=== PATIENT | male | born 1995 | race Caucasian/White ===

== ENCOUNTER 2017-07-22 10:29 | Emergency (ER) | payer OTHER ==
--- NOTE | 2017-07-22 11:56 | XR ---
EXAMINATION TYPE: XR chest 2V DATE OF EXAM ORDERED: 07/22/2017 HISTORY: Pain. REFERENCE: Previous study dated 07/14/2016. FINDINGS: The lungs are clear. Pleural spaces are clear. Heart size is normal. IMPRESSION: NORMAL CHEST.
--- NOTE | 2017-07-22 12:20 | ED ---
URI HPI - General Chief Complaint: Upper Respiratory Infection Stated Complaint: SOB Time Seen by Provider: 07/22/17 11:31 Source: patient, RN notes reviewed, old records reviewed Mode of arrival: ambulatory Limitations: no limitations - History of Present Illness Initial Comments: 21 year old male with one week of cough and sore throat related to cough. Patient reports that he thinks he has croup as his throat will occasionally feel tight. Patient has had no fever, no production from her cough. Patient is not a smoker. Reports history of asthma. Patient denies abodminal pain, chest pain, headche, nausea, vomiting, changes in bowel and bladder habits. - Related Data Home Medications Medication Instructions Recorded Confirmed predniSONE 20 mg PO ONCE PRN 07/22/17 07/22/17 Previous Rx's Medication Instructions Recorded Albuterol Inhaler [Ventolin Hfa 1 - 2 puff INHALATION Q6HR PRN #1 07/22/17 Inhaler] inhaler Azithromycin [Zithromax Z-pack] 250 mg PO DIRECTED #6 tab 07/22/17 predniSONE 50 mg PO DAILY #5 tablet 07/22/17 Allergies Allergy/AdvReac Type Severity Reaction Status Date / Time blueberry [Blueberry] Allergy Rash/Hives Verified 07/22/17 12:08 green beans AdvReac Vomiting Uncoded 07/22/17 10:49 Review of Systems ROS Statement: Those systems with pertinent positive or pertinent negative responses have been documented in the HPI. ROS Other: All systems not noted in ROS Statement are negative. Past Medical History Past Medical History: Asthma History of Any Multi-Drug Resistant Organisms: None Reported Past Surgical History: No Surgical Hx Reported Past Psychological History: No Psychological Hx Reported Smoking Status: Former smoker Past Alcohol Use History: None Reported Past Drug Use History: None Reported General Exam - General Exam Comments Initial Comments: Well appearing 21 year old male, no distress. Limitations: no limitations General appearance: alert, in no apparent distress Head exam: Present: atraumatic, normocephalic, normal inspection Eye exam: Present: normal appearance, PERRL, EOMI. Absent: scleral icterus, conjunctival injection, periorbital swelling Neck exam: Present: normal inspection. Absent: tenderness, meningismus, lymphadenopathy Respiratory exam: Present: normal lung sounds bilaterally. Absent: respiratory distress, wheezes, rales, rhonchi, stridor Cardiovascular Exam: Present: regular rate, normal rhythm, normal heart sounds. Absent: systolic murmur, diastolic murmur, rubs, gallop, clicks GI/Abdominal exam: Present: soft, normal bowel sounds. Absent: distended, tenderness, guarding, rebound, rigid Back exam: Present: normal inspection Neurological exam: Present: alert, oriented X3, CN II-XII intact Psychiatric exam: Present: normal affect, normal mood Skin exam: Present: warm, dry, intact, normal color. Absent: rash Course Vital Signs 07/22/17 07/22/17 10:46 12:39 Temperature 98.4 F 97.4 F L Pulse Rate 67 68 Respiratory 16 18 Rate Blood Pressure 129/60 132/66 O2 Sat by Pulse 99 97 Oximetry Medical Decision Making - Medical Decision Making 21 year old male with one week of cough and sore throat. Patient oropharynx appears normal, no exudate. Patient has no fever at this time. Lungs are clear to ausculation, no wheezing noted. Patient CXR is within normal limitis. Patient does have a dry cough occasionally in ED. Patient will be diagnosed with bronchitis and discharged with azithromycin, prednisione, and albuterol inhaler. Discussed follow up with PCP and return parameters discussed. - Radiology Data Radiology results: report reviewed CXR negative for any acute process. Disposition Clinical Impression: Bronchitis Disposition: HOME SELF-CARE Condition: Good Instructions: Acute Bronchitis (ED) Additional Instructions: Patient is advised to follow-up with primary care provider. Take medications as prescribed. Return to emergency department if any alarming signs or symptoms occur. Prescriptions: Albuterol Inhaler [Ventolin Hfa Inhaler] 1 - 2 puff INHALATION Q6HR PRN #1 inhaler PRN Reason: Shortness Of Breath Azithromycin [Zithromax Z-pack] 250 mg PO DIRECTED #6 tab predniSONE 50 mg PO DAILY #5 tablet Referrals: Vishal Cedeño MD [Primary Care Provider] - 1-2 days Time of Disposition: 12:17
[2017-07-22 12:40] VITALS: BP 132/66; PULSE 68; RESP 18; TEMP 97.4
== END 2017-07-22 12:40 | disposition home or self-care (01) ==
LOC: EC 10:29
DX: J45.909 Unspecified asthma, uncomplicated (principal); Z87.891 Personal history of nicotine dependence; Z91.018 Allergy to other foods
CPT/HCPCS: 71020; 99284

== ENCOUNTER 2019-02-16 13:26 | Emergency (ER) | payer OTHER ==
[2019-02-16 13:54] VITALS: BP 125/72; PULSE 97; RESP 16; TEMP 98.2
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
--- NOTE | 2019-02-16 14:51 | XR ---
EXAMINATION TYPE: XR ankle complete RT DATE OF EXAM: 02/16/2019 CLINICAL HISTORY: Fall, pain TECHNIQUE: Frontal, lateral and oblique images of the right ankle are obtained. COMPARISON: None. FINDINGS: Obliquely oriented minimally laterally displaced fracture is seen involving the distal fibu la. Fracture line extends into the articulation with the tibia. No dislocation. Diffuse soft tissue s welling is seen of the lateral ankle. No medial malleolus fracture. No additional sites of fracture a re evident. IMPRESSION: Obliquely oriented and minimally displaced distal fibular fracture with fracture line ext ending into the tibiofibular articulation.
== END 2019-02-16 15:31 | disposition home or self-care (01) ==
LOC: EC 13:26
DX: S82.831A Other fracture of upper and lower end of right fibula, initial encounter for closed fracture (principal); J45.909 Unspecified asthma, uncomplicated; Z87.891 Personal history of nicotine dependence; Z91.018 Allergy to other foods; V87.8XXA Person injured in other specified noncollision transport accidents involving motor vehicle (traffic), initial encounter; Y92.410 Unspecified street and highway as the place of occurrence of the external cause
CPT/HCPCS: 29515; 99283

== ENCOUNTER 2020-09-23 06:30 | Emergency (ER) | payer OTHER ==
[2020-09-23 06:37] VITALS: RESP 18
[2020-09-23] MEDS ORDERED: ALBUTEROL NEBULIZED 2.5 MG/3 ML INHALATION STA ×2 (06:43→07:13)
[2020-09-23] MEDS ORDERED: methylPREDNISolone SOD SUCCI 125 MG/2 ML VIAL IM ONE (06:43)
--- NOTE | 2020-09-23 06:48 | ED ---
URI HPI - General Chief Complaint: Upper Respiratory Infection Stated Complaint: OSCAR Time Seen by Provider: 09/23/20 06:39 Source: patient Mode of arrival: ambulatory Limitations: no limitations - History of Present Illness Initial Comments: 24yo with history of asthma uses rescue inhaler and oral steroids on PRN basis presenting for cc of dyspnea. pt states he has had increased wheezing for the past 3 days, increase use of his inhaler. pt states this morning he had to use it and has increased coughing. patietn denies fevers, denies chest pain, leg s welling. pt denies additional complaints. pt state she took prednisone yesterday. - Related Data Home Medications Medication Instructions Recorded Confirmed predniSONE [Deltasone] 20 mg PO ONCE PRN 07/22/17 07/22/17 Previous Rx's Medication Instructions Recorded Albuterol Inhaler (Mhu) [Ventolin 1 - 2 puff INHALATION Q6HR PRN #1 07/22/17 Hfa Inhaler (Mhu)] inhaler Azithromycin [Zithromax Z-pack (6 250 mg PO DIRECTED #6 tab 07/22/17 tabs)] predniSONE 50 mg PO DAILY #5 tablet 07/22/17 predniSONE 50 mg PO DAILY 4 Days #4 tablet 09/23/20 Allergies Allergy/AdvReac Type Severity Reaction Status Date / Time blueberry [Blueberry] Allergy Rash/Hives Verified 09/23/20 06:37 green beans AdvReac Vomiting Uncoded 09/23/20 06:37 Review of Systems ROS Statement: Those systems with pertinent positive or pertinent negative responses have been documented in the HPI. ROS Other: All systems not noted in ROS Statement are negative. Past Medical History Past Medical History: Asthma History of Any Multi-Drug Resistant Organisms: None Reported Past Surgical History: No Surgical Hx Reported Past Psychological History: No Psychological Hx Reported Smoking Status: Vaper Past Alcohol Use History: None Reported Past Drug Use History: Marijuana General Exam - General Exam Comments Initial Comments: General: The patient is awake and alert, in no distress, and does not appear acutely ill. Eye: Pupils are equal, round and reactive to light, extra-ocular movements are intact. No nystagmus. There is normal conjunctiva bilaterally. No signs of icterus. Ears, nose, mouth and throat: There are moist mucous membranes and no oral lesions. Neck: The neck is supple, there is no tenderness or JVD. Cardiovascular: There is a regular rate and rhythm. No murmur, rub or gallop is appreciated. Respiratory: Respirations are non-labored, breath sounds are equal. Slightly diminished lung sounds on expiration. No wheezes, stridor, rales, or rhonchi. Musculoskeletal: Normal ROM, no tenderness. Strength 5/5. Sensation intact. Pulses equal bilaterally 2+. Neurological: A&O x 3. CN II-XII intact, There are no obvious motor or sensory deficits. Coordination appears grossly intact. Speech is normal. Skin: Skin is warm and dry and no rashes or lesions are noted. Psychiatric: Cooperative, appropriate mood & affect, normal judgment. Limitations: no limitations Course Vital Signs 09/23/20 09/23/20 09/23/20 06:32 06:48 07:03 Temperature 97.6 F Pulse Rate 73 84 Respiratory 18 18 Rate Blood Pressure 134/85 O2 Sat by Pulse 97 Oximetry 09/23/20 09/23/20 09/23/20 07:10 07:41 07:48 Temperature Pulse Rate 76 76 74 Respiratory Rate Blood Pressure O2 Sat by Pulse Oximetry 09/23/20 08:11 Temperature 97.8 F Pulse Rate 71 Respiratory 18 Rate Blood Pressure 128/78 O2 Sat by Pulse 97 Oximetry Medical Decision Making - Medical Decision Making after 2 treatment improvement of aeration. Chest x-ray clear. VS stable. pt will be discharged on steroids. has ventolin inhaler. patient discharged appearing well. - Lab Data Lab Results 09/23/20 Range/Units 06:48 Coronavirus (PCR) Not Detected (Not Detectd) Disposition Clinical Impression: Dyspnea, Cough Disposition: HOME SELF-CARE Condition: Good Instructions (If sedation given, give patient instructions): Upper Respiratory Infection (ED), Dyspnea (ED) Additional Instructions: Please use medication as discussed. Please follow-up with family doctor in the next 2 days.. Please return to emergency room if the symptoms increase or worsen or for any other concerns. Prescriptions: predniSONE 50 mg PO DAILY 4 Days #4 tablet Is patient prescribed a controlled substance at d/c from ED?: No Referrals: Vishal Cedeño MD [Primary Care Provider] - 1-2 days Time of Disposition: 07:53
--- NOTE | 2020-09-23 07:07 | XR ---
EXAM: XR Chest, 2 Views CLINICAL HISTORY: ITS.REASON XR Reason: dyspnea, hx asthma TECHNIQUE: Frontal and lateral views of the chest. COMPARISON: 07/22/17. FINDINGS: Lungs: Mild perihilar opacities, similar to prior. No consolidation. Pleural space: No significant pleural effusion or pneumothorax. Heart: Unremarkable. Mediastinum: Unremarkable. Bones/joints: No acute fracture. IMPRESSION: No consolidation.
[2020-09-23 08:12] VITALS: BP 128/78; PULSE 71; TEMP 97.8
== END 2020-09-23 08:12 | disposition home or self-care (01) ==
LOC: EC 06:30
DX: R06.00 Dyspnea, unspecified (principal); R05 Cough; F17.290 Nicotine dependence, other tobacco product, uncomplicated; J45.909 Unspecified asthma, uncomplicated; Z20.828 Contact with and (suspected) exposure to other viral communicable diseases; Z79.52 Long term (current) use of systemic steroids; Z91.018 Allergy to other foods
CPT/HCPCS: 94640 ×2; 87635; 71046; 99285; 96372; J2930

== ENCOUNTER 2021-07-09 12:37 | Emergency (ER) | payer OTHER ==
--- NOTE | 2021-07-09 13:48 | ED ---
General Adult HPI - General Stated complaint: Sore throat, Cough Time Seen by Provider: 07/09/21 13:00 Source: patient, RN notes reviewed Mode of arrival: ambulatory Limitations: no limitations - History of Present Illness Initial comments: This a 25-year-old male presents emergency Department chief complaint sore throat, cough congestion. Patient states that he has mild shortness of breath symptoms started last few days. Patient denies any known sick contacts. No history of COVID-19. Denies any GI symptoms including nausea, vomiting diarrhea constipation. - Related Data Home Medications Medication Instructions Recorded Confirmed predniSONE [Deltasone] 20 mg PO ONCE PRN 07/22/17 07/22/17 Previous Rx's Medication Instructions Recorded Albuterol Inhaler (Mhu) [Ventolin 1 - 2 puff INHALATION Q6HR PRN #1 07/22/17 Hfa Inhaler (Mhu)] inhaler Azithromycin [Zithromax Z-pack (6 250 mg PO DIRECTED #6 tab 07/22/17 tabs)] predniSONE 50 mg PO DAILY #5 tablet 07/22/17 predniSONE 50 mg PO DAILY 4 Days #4 tablet 09/23/20 Allergies Allergy/AdvReac Type Severity Reaction Status Date / Time blueberry [Blueberry] Allergy Rash/Hives Verified 07/09/21 13:47 green beans AdvReac Vomiting Uncoded 07/09/21 13:47 Review of Systems ROS Statement: Those systems with pertinent positive or pertinent negative responses have been documented in the HPI. ROS Other: All systems not noted in ROS Statement are negative. Past Medical History Past Medical History: Asthma History of Any Multi-Drug Resistant Organisms: None Reported Past Surgical History: No Surgical Hx Reported Past Psychological History: No Psychological Hx Reported Smoking Status: Vaper Past Alcohol Use History: None Reported Past Drug Use History: Marijuana Course Vital Signs 07/09/21 13:47 Temperature 97.4 F L Pulse Rate 76 Respiratory 18 Rate Blood Pressure 126/78 O2 Sat by Pulse 99 Oximetry Medical Decision Making - Medical Decision Making Patient's COVID-19 swab is negative. Patient be discharged and stable condition. - Lab Data Lab Results 07/09/21 Range/Units 13:59 Coronavirus (PCR) Not Detected (Not Detectd) Disposition Clinical Impression: Upper respiratory infection Disposition: HOME SELF-CARE Condition: Stable Instructions (If sedation given, give patient instructions): Upper Respiratory Infection (ED) Additional Instructions: Please return to the Emergency Department if symptoms worsen or any other concerns. Is patient prescribed a controlled substance at d/c from ED?: No Referrals: Vishal Cedeño MD [Primary Care Provider] - 1-2 days Time of Disposition: 14:41
[2021-07-09 13:49] VITALS: BP 126/78; PULSE 76; RESP 18; TEMP 97.4
== END 2021-07-09 15:07 | disposition home or self-care (01) ==
LOC: EC 12:37
DX: J02.9 Acute pharyngitis, unspecified (principal); R06.02 Shortness of breath; J45.909 Unspecified asthma, uncomplicated; F12.90 Cannabis use, unspecified, uncomplicated; Z20.822 Contact with and (suspected) exposure to COVID-19; Z79.52 Long term (current) use of systemic steroids; Z79.51 Long term (current) use of inhaled steroids
CPT/HCPCS: 87635; 99284

== ENCOUNTER 2021-09-19 11:24 | Emergency (ER) | payer OTHER ==
[2021-09-19 11:58] VITALS: TEMP 98.1
--- NOTE | 2021-09-19 12:59 | ED ---
General Adult HPI - General Chief complaint: Headache Stated complaint: headache Time Seen by Provider: 09/19/21 12:00 Source: patient, RN notes reviewed Mode of arrival: ambulatory Limitations: no limitations - History of Present Illness Initial comments: Patient is a pleasant 25-year-old male presenting to the emergency Department not feeling well for the past 5 days. Patient has had headache and nasal congestion. Headaches were not sudden onset and severe. Lost of smell. No loss of taste. No vomiting. No dyspnea. No history of similar symptoms previously. Patient does have fatigue. Fatigue is somewhat chronic. Patient does have history of asthma. - Related Data Home Medications Medication Instructions Recorded Confirmed predniSONE [Deltasone] 20 mg PO ONCE PRN 07/22/17 07/22/17 Previous Rx's Medication Instructions Recorded Albuterol Inhaler (Mhu) [Ventolin 1 - 2 puff INHALATION Q6HR PRN #1 07/22/17 Hfa Inhaler (Mhu)] inhaler Azithromycin [Zithromax Z-pack (6 250 mg PO DIRECTED #6 tab 07/22/17 tabs)] predniSONE 50 mg PO DAILY #5 tablet 07/22/17 predniSONE 50 mg PO DAILY 4 Days #4 tablet 09/23/20 Azithromycin [Zithromax Z-pack (6 0 mg PO DIRECTED #1 packet 07/09/21 tabs)] predniSONE 50 mg PO DAILY #5 tab 07/09/21 Allergies Allergy/AdvReac Type Severity Reaction Status Date / Time blueberry [Blueberry] Allergy Rash/Hives Verified 09/19/21 11:55 green beans AdvReac Vomiting Uncoded 09/19/21 11:55 Review of Systems ROS Statement: Those systems with pertinent positive or pertinent negative responses have been documented in the HPI. ROS Other: All systems not noted in ROS Statement are negative. Constitutional: Reports: chills Eyes: Denies: eye pain ENT: Reports: congestion. Denies: ear pain Respiratory: Denies: cough, dyspnea Cardiovascular: Denies: chest pain Endocrine: Reports: fatigue Gastrointestinal: Denies: abdominal pain Genitourinary: Denies: dysuria Musculoskeletal: Denies: back pain Skin: Denies: rash Neurological: Denies: weakness Past Medical History Past Medical History: Asthma History of Any Multi-Drug Resistant Organisms: None Reported Past Surgical History: No Surgical Hx Reported Past Psychological History: No Psychological Hx Reported Smoking Status: Vaper Past Alcohol Use History: None Reported Past Drug Use History: Marijuana General Exam Limitations: no limitations General appearance: alert, in no apparent distress Head exam: Present: normocephalic Eye exam: Present: normal appearance Neck exam: Present: normal inspection Respiratory exam: Present: normal lung sounds bilaterally Cardiovascular Exam: Present: regular rate, normal rhythm Back exam: Present: normal inspection Neurological exam: Present: alert, CN II-XII intact. Absent: motor sensory deficit Psychiatric exam: Present: normal affect, normal mood Skin exam: Present: normal color Course Vital Signs 09/19/21 11:55 Temperature 98.1 F Pulse Rate 84 Respiratory 18 Rate Blood Pressure 128/88 O2 Sat by Pulse 98 Oximetry Medical Decision Making - Medical Decision Making Patient is a candidate for monoclonal antibody secondary to history of asthma. Patient will receive these prior to discharge. - Lab Data Lab Results 09/19/21 Range/Units 11:58 Coronavirus (PCR) Detected A (Not Detectd) Disposition Clinical Impression: COVID-19 Disposition: HOME SELF-CARE Condition: Stable Instructions (If sedation given, give patient instructions): Coronavirus Disease 2019 (COVID-19) Additional Instructions: Please follow-up with primary care physician in the next couple days for recheck. Continue to quarantine through [place]. [id number] Tylenol or Motrin as needed. [id number] vitamin C, vitamin D, and seems to help. Melatonin at bedtime may help. Return for difficulty breathing. Not tolerating fluids, worsening symptoms or other concerns. Is patient prescribed a controlled substance at d/c from ED?: No Referrals: Vishal Cedeño MD [Primary Care Provider] - 1-2 days Time of Disposition: 12:58
[2021-09-19] MEDS ORDERED: SODIUM CHLORIDE 0.9% 50 ML IVPB ONE (14:00)
[2021-09-19] MEDS ORDERED: BAMLANIVIMAB (EUA) 700 MG, ETESEVIMAB (EUA) 1,400 MG in SODIUM CHLORIDE 0.9% 50 ML IVPB ONE (14:00)
[2021-09-19 16:24] VITALS: BP 128/70; PULSE 72; RESP 15
== END 2021-09-19 15:20 | disposition home or self-care (01) ==
LOC: EC 11:24
DX: U07.1 COVID-19 (principal); J45.909 Unspecified asthma, uncomplicated; F17.290 Nicotine dependence, other tobacco product, uncomplicated; F12.90 Cannabis use, unspecified, uncomplicated; Z79.52 Long term (current) use of systemic steroids; Z79.51 Long term (current) use of inhaled steroids
CPT/HCPCS: 87635; 99284; J3490

== ENCOUNTER 2022-02-02 12:36 | Emergency (ER) | payer OTHER ==
[2022-02-02 12:55] VITALS: BP 126/83; PULSE 69; RESP 16; TEMP 98.5
--- NOTE | 2022-02-02 13:36 | XR ---
EXAMINATION TYPE: XR chest 2V DATE OF EXAM: 02/02/2022 COMPARISON: Chest x-ray September 23, 2020 HISTORY: Cough and shortness of breath. Right-sided chest pain. TECHNIQUE: Frontal and lateral views of the chest are obtained. FINDINGS: There is no suspicious focal air space opacity, pleural effusion, or pneumothorax seen. T he cardiac silhouette size remains within normal limits. The osseous structures are intact. IMPRESSION: No acute pulmonary process.
--- NOTE | 2022-02-02 14:01 | ED ---
General Adult HPI - General Chief complaint: Upper Respiratory Infection Stated complaint: OSCAR Time Seen by Provider: 02/02/22 13:17 Source: patient, RN notes reviewed, old records reviewed Mode of arrival: ambulatory Limitations: no limitations - History of Present Illness Initial comments: Patient is a 26-year-old male with past medical history remarkable for asthma who is on Symbicort and albuterol at home presents emergency department over concern for upper respiratory symptoms. States they have been ongoing for the past day or so. Denies any sick contacts. Denies any fevers. Endorses mild cough productive of green mucous. He is out of his albuterol inhaler at home. Denies any chest pain. States he did have mild right-sided rib pain with coughing. Since resolved. Denies any abdominal pain, nausea, vomiting. No other acute complaints at this time. He is concerned as he thinks he may require antibiotics and needs refill on his albuterol inhaler. - Related Data Home Medications Medication Instructions Recorded Confirmed Albuterol Sulfate [Ventolin HFA] 1 - 2 puff INHALATION RT-Q6H PRN 09/19/21 02/02/22 Loratadine [Claritin] 10 mg PO DAILY PRN 09/19/21 02/02/22 Previous Rx's Medication Instructions Recorded Albuterol Inhaler [Ventolin Hfa 1 puff INHALATION RT-QID #8 gm 02/02/22 Inhaler] Azithromycin [Zithromax Z-pack (6 0 mg PO DIRECTED 5 Days #6 tab 02/02/22 tabs)] Allergies Allergy/AdvReac Type Severity Reaction Status Date / Time blueberry [Blueberry] Allergy Rash/Hives Verified 02/02/22 13:48 green beans AdvReac Vomiting Uncoded 02/02/22 13:48 Review of Systems ROS Statement: Those systems with pertinent positive or pertinent negative responses have been documented in the HPI. Review of Systems: CONST: Denies fever EYES: Denies blurry vision ENT: Endorses nasal congestion. C/V: Denies Chest pain RESP: Denies shortness of breath GI: Denies abdominal pain : Denies dysuria SKIN: Denies rash. MSK: Denies joint pain. NEURO: Denies headache ROS Other: All systems not noted in ROS Statement are negative. Past Medical History Past Medical History: Asthma History of Any Multi-Drug Resistant Organisms: None Reported Past Surgical History: No Surgical Hx Reported Past Psychological History: No Psychological Hx Reported Smoking Status: Vaper Past Alcohol Use History: None Reported Past Drug Use History: Marijuana General Exam - General Exam Comments Initial Comments: General: Appears in no acute distress. HEAD: Normal with no signs of head trauma. EYES: EOMI. ENT: Hearing grossly intact, normal oropharynx. Nasal congestion. RESPIRATORY: Clear breath sounds bilaterally. No wheezes, rales, or rhonchi. No increased work of breathing. No hypoxia. C/V: Regular rate and rhythm. S1 and S2 auscultated, no edema, peripheral pulses 2+ and intact throughout ABD: Abd is soft, nontender, nondistended EXT: Normal range of motion, no obvious deformity SKIN: No rashes or lesions observed on exposed skin. NEURO: Alert and oriented 4. Limitations: no limitations Course Vital Signs 02/02/22 12:51 Temperature 98.5 F Pulse Rate 69 Respiratory 16 Rate Blood Pressure 126/83 O2 Sat by Pulse 99 Oximetry Medical Decision Making - Medical Decision Making Based on the patient's presentation and physical exam, I'm concerned for possible upper respiratory illness versus bronchitis. Does not appear to be having an asthma exacerbation. Covid, flu swabs were obtained in triage and are negative. Chest x-ray was also obtained and is negative for acute cardiopulmonary process. No signs of infectious etiology. On reevaluation, patient's vital signs remained within normal limits since arrival. I discussed results with him. He likely is experiencing bronchitis pretreated with the duct mucus and history of asthma. I will provide him with a Z-Delvis antibiotic for home as well as an albuterol refill. He was in agreement this plan. Does not require steroids at this time as his not having an asthma exacerbation. I will provide the patient with a prescription for azithromycin, albuterol inhaler. I instructed the patient to follow up with their PCP in the next 3 days. I explained that the patient should return to the emergency department if they experience any worsening symptoms. Strict return precautions were discussed with the patient. The patient expressed understanding of these instructions. I answered all questions that the patient had. The patient was discharged home in good condition with their prescriptions and follow up information. - Lab Data Lab Results 02/02/22 02/02/22 Range/Units 13:01 13:01 Coronavirus (PCR) Not Detected (Not Detectd) Influenza Type A RNA Not Detected (Not Detectd) Influenza Type B (PCR) Not Detected (Not Detectd) Disposition Clinical Impression: Bronchitis Disposition: HOME SELF-CARE Condition: Good Instructions (If sedation given, give patient instructions): Upper Respiratory Infection (ED), Acute Bronchitis (ED) Prescriptions: Albuterol Inhaler [Ventolin Hfa Inhaler] 1 puff INHALATION RT-QID #8 gm Azithromycin [Zithromax Z-pack (6 tabs)] 0 mg PO DIRECTED 5 Days #6 tab Is patient prescribed a controlled substance at d/c from ED?: No Referrals: Vishal Cedeño MD [Primary Care Provider] - 1-2 days Time of Disposition: 13:59
== END 2022-02-02 14:16 | disposition home or self-care (01) ==
LOC: EC 12:36
DX: J40 Bronchitis, not specified as acute or chronic (principal); J45.909 Unspecified asthma, uncomplicated; F17.290 Nicotine dependence, other tobacco product, uncomplicated; Z91.018 Allergy to other foods; Z20.822 Contact with and (suspected) exposure to COVID-19
CPT/HCPCS: 71046; 87502; 87635; 99283

== ENCOUNTER 2023-02-15 09:44 | Emergency (ER) | payer OTHER ==
[2023-02-15] MEDS ORDERED: KETOROLAC 15 MG/ML 1 ML VIAL IM STA (09:57)
--- NOTE | 2023-02-15 10:05 | ED ---
ENT HPI - General Chief complaint: ENT Stated complaint: left face swollen Time Seen by Provider: 02/15/23 09:50 Source: patient, RN notes reviewed Mode of arrival: ambulatory Limitations: no limitations - History of Present Illness Initial comments: Patient is a 27 her old male presenting to the emergency room with complaints of left upper cheek swelling, pain with opening his mouth, pain with chewing and pressure in his lower left I region at times. The symptom began yesterday and has gotten progressively worse. He has a history of dental caries and dental abscesses which he has taken penicillin and amoxicillin for in the past. He denies any recent antibiotic therapy. He denies any fevers or chills. He did undergo vaccination for Covid and hepatitis 4 days ago, he denies any symptomatology within 48 hours of his vaccinations. He denies previous vaccination reactions. He reports that he has an appointment with his dentist and 6 days for wisdom tooth removal on the site for his current pain and swelling is. He denies any chest pain, shortness of breath, difficulty in breathing, abdominal pain, nausea, vomiting, headache, dizziness, changes in vision, fevers or chills. He has a past medical history significant for asthma. - Related Data Home Medications Medication Instructions Recorded Confirmed Albuterol Sulfate [Ventolin HFA] 1 - 2 puff INHALATION RT-Q6H PRN 09/19/21 02/02/22 Loratadine [Claritin] 10 mg PO DAILY PRN 09/19/21 02/02/22 Previous Rx's Medication Instructions Recorded Albuterol Inhaler [Ventolin Hfa 1 puff INHALATION RT-QID #8 gm 02/02/22 Inhaler] Azithromycin [Zithromax Z-pack (6 0 mg PO DIRECTED 5 Days #6 tab 02/02/22 tabs)] Amoxic-Pot Clav 875-125Mg 1 tab PO Q12HR 10 Days #20 tab 02/15/23 [Augmentin 875-125] Ibuprofen [Motrin] 800 mg PO Q8H PRN 7 Days #21 tab 02/15/23 Allergies Allergy/AdvReac Type Severity Reaction Status Date / Time blueberry [Blueberry] Allergy Rash/Hives Verified 02/15/23 09:49 green beans AdvReac Vomiting Uncoded 02/15/23 09:49 Review of Systems ROS Statement: Those systems with pertinent positive or pertinent negative responses have been documented in the HPI. ROS Other: All systems not noted in ROS Statement are negative. Past Medical History Past Medical History: Asthma History of Any Multi-Drug Resistant Organisms: None Reported Past Surgical History: No Surgical Hx Reported Past Psychological History: No Psychological Hx Reported Smoking Status: Vaper Past Alcohol Use History: None Reported Past Drug Use History: Marijuana General Exam Limitations: no limitations General appearance: alert, in no apparent distress Head exam: Present: atraumatic, normocephalic, normal inspection Eye exam: Present: PERRL, EOMI, periorbital swelling (trace left lower ), periorbital tenderness (left lower). Absent: scleral icterus, conjunctival injection ENT exam: Present: normal external ear exam Expanded Teeth exam: Present: dental caries, gingival enlargement, other (Left upper periapical tenderness second and third molar. Swelling and tenderness left upper without identifiable abscess for drainage.) Throat exam: normal inspection. negative: tonsillar erythema, tonsillomegaly Neck exam: Present: normal inspection, lymphadenopathy (Shotty). Absent: tenderness Respiratory exam: Present: normal lung sounds bilaterally. Absent: respiratory distress, wheezes, rales, rhonchi, stridor Cardiovascular Exam: Present: regular rate, normal rhythm, normal heart sounds. Absent: systolic murmur, diastolic murmur, rubs, gallop, clicks GI/Abdominal exam: Present: soft. Absent: distended, tenderness, guarding, rebound, rigid Rectal exam: Present: deferred Extremities exam: Present: normal inspection. Absent: pedal edema, joint swelling Back exam: Present: normal inspection Neurological exam: Present: alert, oriented X3, CN II-XII intact Psychiatric exam: Present: normal affect, normal mood Skin exam: Present: warm, dry, intact, normal color. Absent: rash Course Vital Signs 02/15/23 02/15/23 09:46 10:39 Temperature 97.7 F 98 F Pulse Rate 52 L 60 Respiratory 18 16 Rate Blood Pressure 139/94 128/76 O2 Sat by Pulse 100 100 Oximetry Medical Decision Making - Medical Decision Making Was pt. sent in by a medical professional or institution (, PA, FISH BIN TENDER, urgent care, hospital, or jail...) When possible be specific @ -No Did you speak to anyone other than the patient for history (EMS, parent, family, police, friend...)? What history was obtained from this source @ -No Did you review nursing and triage notes (agree or disagree)? Why? @ -I reviewed and agree with nursing and triage notes Were old charts reviewed (outside hosp., previous admission, EMS record, old EKG, old radiological studies, urgent care reports/EKG's, jail records)? Report findings @ -No old charts were reviewed Differential Diagnosis (chest pain, altered mental status, abdominal pain women, abdominal pain men, vaginal bleeding, weakness, fever, dyspnea, syncope, headache, dizziness, GI bleed, back pain, seizure, CVA, palpatations, mental health, musculoskeletal)? @ -Differential Dental Pain: Gingivitis, dental abscess, gingivitis abscess, acute pulpitis, dental caries, tooth fracture, impacted molar, toothache, acute necrotizing ulcerative gingivitis, oral herpes simplex infection, candidiasis of the mouth, aphyhous ulcer... this is not meant to be an all-inclusive list. EKG interpreted by me (3pts min.). @ -None done X-rays interpreted by me (1pt min.). @ -None done CT interpreted by me (1pt min.). @ -None done U/S interpreted by me (1pt. min.). @ -None done What testing was considered but not performed or refused? (CT, X-rays, U/S, labs)? Why? @ -None What meds were considered but not given or refused? Why? @ -None Did you discuss the management of the patient with other professionals (professionals i.e. , PA, FISH BIN TENDER, lab, RT, psych nurse, outreach and education social worker, air traffic control supervisor, teacher, restoration officer, rehabilitation case coordinator)? Give summary @ -No Was smoking cessation discussed for >3mins.? @ -No Was critical care preformed (if so, how long)? @ -No Were there social determinants of health that impacted care today? How? (Homelessness, low income, unemployed, alcoholism, drug addiction, transportation, low edu. Level, literacy, decrease access to med. care, retirement, rehab)? @ -No Was there de-escalation of care discussed even if they declined (Discuss DNR or withdrawal of care, Hospice)? DNR status @ -No What co-morbidities impacted this encounter? (DM, HTN, Smoking, COPD, CAD, Cancer, CVA, ARF, Chemo, Hep., AIDS, mental health diagnosis, sleep apnea, morbid obesity)? @ -Dental caries. Was patient admitted / discharged? Hospital course, mention meds given and route, prescriptions, significant lab abnormalities, going to OR and other pertinent info. @ -27-year-old male presented to the emergency room with complaints of left cheek region pain and swelling with increased pain with opening of mouth and chewing. Known dental caries. No systemic symptoms. No indication for diagnostic imaging or laboratory studies. No abscess that is drainable upon examination. Previous antibiotic therapy of penicillin and amoxicillin with unsure of last dosing. Will give IM Toradol to reduce pain and swelling. Education regarding dental abscess as discussed. Questions and concerns answered. Return parameters to the emergency room discussed. Will discharge home in stable condition on Augmentin for dental abscess along with ibuprofen to utilize for pain and swelling advising follow-up with dentist as scheduled along with primary care provider if needed. Undiagnosed new problem with uncertain prognosis? @ -No Drug Therapy requiring intensive monitoring for toxicity (Heparin, Nitro, Insulin, Cardizem)? @ -No Were any procedures done? @ -No Diagnosis/symptom? @ -Dental abscess Acute, or Chronic, or Acute on Chronic? @ -Acute Uncomplicated (without systemic symptoms) or Complicated (systemic symptoms)? @ -Uncomplicated Side effects of treatment? @ -No Exacerbation, Progression, or Severe Exacerbation? @ -No Poses a threat to life or bodily function? How? (Chest pain, [place], [place], pneumonia, PE, COPD, DKA, ARF, appy, cholecystitis, CVA, Diverticulitis, Homicidal, Suicidal, threat to staff... and all critical care pts) @ -No Case discussed with Dr. Nagy. Disposition Clinical Impression: Dental abscess Disposition: HOME SELF-CARE Condition: Stable Instructions (If sedation given, give patient instructions): Dental Abscess (ED) Additional Instructions: Complete course of antibiotic therapy as prescribed. Utilize Motrin prescription every 8 hours for pain and swelling as needed. Warm salt water rinses may help reduce pain and swelling. Please follow-up with your dentist as scheduled along with your primary care provider if needed. Please return to the Emergency Department if symptoms worsen or any other concerns. Prescriptions: Amoxic-Pot Clav 875-125Mg [Augmentin 875-125] 1 tab PO Q12HR 10 Days #20 tab Ibuprofen [Motrin] 800 mg PO Q8H PRN 7 Days #21 tab PRN Reason: Pain Is patient prescribed a controlled substance at d/c from ED?: No Referrals: None,Stated [Primary Care Provider] - 1-2 days Time of Disposition: 10:21
[2023-02-15 10:41] VITALS: BP 128/76; PULSE 60; RESP 16; TEMP 98
== END 2023-02-15 10:41 | disposition home or self-care (01) ==
LOC: EC 09:44
DX: K04.7 Periapical abscess without sinus (principal); J45.909 Unspecified asthma, uncomplicated; F17.290 Nicotine dependence, other tobacco product, uncomplicated; F12.90 Cannabis use, unspecified, uncomplicated; Z79.899 Other long term (current) drug therapy; Z91.018 Allergy to other foods
CPT/HCPCS: 99283; 96372; J1885

== ENCOUNTER 2023-06-17 09:36 | Emergency (ER) | payer OTHER ==
[2023-06-17] MEDS ORDERED: IPRATROPIUM-ALBUTEROL 3 ML NEB INHALATION STA (11:13)
--- NOTE | 2023-06-17 11:21 | ED ---
URI HPI - General Chief Complaint: Upper Respiratory Infection Stated Complaint: cough Time Seen by Provider: 06/17/23 10:38 Source: patient, RN notes reviewed Mode of arrival: ambulatory Limitations: no limitations - History of Present Illness Initial Comments: This is a 27-year-old male who presents to the emergency department for coughing and congestion. Symptoms started 3 days ago. Reports a history of asthma and has occasionally been using his rescue inhaler, which he states is helpful. He does present with his nephew who has similar symptoms. Denies any fevers or chills. Denies any fevers, chills, sore throat, palpitations, abdominal pain, nausea, vomiting, diarrhea, back pain, or headaches. MD Complaint: cough, nasal congestion - Related Data Home Medications Medication Instructions Recorded Confirmed Albuterol Sulfate [Ventolin HFA] 1 - 2 puff INHALATION RT-Q6H PRN 09/19/21 02/02/22 Loratadine [Claritin] 10 mg PO DAILY PRN 09/19/21 02/02/22 Previous Rx's Medication Instructions Recorded Albuterol Inhaler [Ventolin Hfa 1 puff INHALATION RT-QID #8 gm 02/02/22 Inhaler] Azithromycin [Zithromax Z-pack (6 0 mg PO DIRECTED 5 Days #6 tab 02/02/22 tabs)] Amoxic-Pot Clav 875-125Mg 1 tab PO Q12HR 10 Days #20 tab 02/15/23 [Augmentin 875-125] Ibuprofen [Motrin] 800 mg PO Q8H PRN 7 Days #21 tab 02/15/23 predniSONE 50 mg PO DAILY 5 Days #5 tab 06/17/23 Allergies Allergy/AdvReac Type Severity Reaction Status Date / Time blueberry [Blueberry] Allergy Rash/Hives Verified 06/17/23 09:56 green beans AdvReac Vomiting Uncoded 06/17/23 09:56 Review of Systems ROS Statement: Those systems with pertinent positive or pertinent negative responses have been documented in the HPI. ROS Other: All systems not noted in ROS Statement are negative. Past Medical History Past Medical History: Asthma History of Any Multi-Drug Resistant Organisms: None Reported Past Surgical History: No Surgical Hx Reported Past Psychological History: No Psychological Hx Reported Smoking Status: Current every day smoker, Vaper Past Alcohol Use History: None Reported Past Drug Use History: Marijuana General Exam Limitations: no limitations General appearance: alert, in no apparent distress Head exam: Present: atraumatic, normocephalic, normal inspection Respiratory exam: Present: normal lung sounds bilaterally. Absent: respiratory distress, wheezes, rales, rhonchi, stridor Cardiovascular Exam: Present: regular rate, normal rhythm, normal heart sounds. Absent: systolic murmur, diastolic murmur, rubs, gallop, clicks Neurological exam: Present: alert, oriented X3, CN II-XII intact Psychiatric exam: Present: normal affect, normal mood Skin exam: Present: warm, dry, intact, normal color. Absent: rash Course Vital Signs 06/17/23 06/17/23 06/17/23 09:54 10:49 11:43 Temperature 98.4 F 98.5 F Pulse Rate 63 54 L 72 Respiratory 20 18 16 Rate Blood Pressure 115/71 125/66 O2 Sat by Pulse 98 97 Oximetry 06/17/23 06/17/23 11:51 11:52 Temperature 97.5 F L Pulse Rate 68 55 L Respiratory 16 18 Rate Blood Pressure 122/70 O2 Sat by Pulse 99 Oximetry Medical Decision Making - Medical Decision Making This is a 27-year-old male who presents to the emergency department for coughing and congestion. Was pt. sent in by a medical professional or institution? @ -No Did you speak to anyone other than the patient for history? @ -No Did you review nursing and triage notes? @ -Yes, and I agree, it is accurate with regards to the patient's symptoms. Were old charts reviewed? @ -No Differential Diagnosis? @ -Differential Cough: Influenza, Covid, RSV, croup, allergic rhinitis, GERD, pneumonia, bronchitis, COPD, viral pharyngitis, streptococcal pharyngitis, this is not meant to be an all-inclusive list. EKG interpreted by me (3pts min.)? @ -Not obtained X-rays interpreted by me (1pt min.)? @ -Not obtained CT interpreted by me (1pt min.)? @ -Not obtained U/S interpreted by me (1pt. min.)? @ -Not obtained What testing was considered but not performed? (CT, X-rays, U/S, labs)? Why? @ -None What meds were considered but not given? Why? @ -None Did you discuss the management of the patient with other professionals? @ -No Did you reconcile home meds? @ -No Was smoking cessation discussed for >3mins.? @ -No Was critical care preformed (if so, how long)? @ -No Were there social determinants of health that impacted care today? How? (Homelessness, low income, unemployed, alcoholism, drug addiction, transportation, low edu. Level, literacy, decrease access to med. care, long term, rehab)? @ -No Was there de-escalation of care discussed even if they declined? (Discuss DNR or withdrawal of care, Hospice)? @ -No What co-morbidities impacted this encounter? (DM, HTN, Smoking, COPD, CAD, Cancer, CVA, Hep., AIDS, mental health diagnosis, sleep apnea, morbid obesity)? @ -Asthma Was patient admitted / discharged? @ -Discharged. Covid, influenza, and RSV testing were negative. Rapid strep test negative. Patient given a DuoNeb breathing treatment with significant relief in symptoms. Discussed that this is likely related to a viral URI or asthmatic bronchitis. He was given a prescription for a 5 day course of prednisone. Advised he continue to use his rescue inhaler and nebulizer treatments as needed. He will otherwise follow up with his PCP for reevaluation. Undiagnosed new problem with uncertain prognosis? @ -None Drug Therapy requiring intensive monitoring for toxicity (Heparin, Nitro, Insulin, Cardizem)? @ -None Were any procedures done? @ -None Diagnosis/symptom? @ -Asthmatic bronchitis Acute, or Chronic, or Acute on Chronic? @ -Acute Uncomplicated (without systemic symptoms) or Complicated (systemic symptoms)? @ -Uncomplicated Side effects of treatment? @ -None Exacerbation, Progression, or Severe Exacerbation] @ -Not applicable Poses a threat to life or bodily function? @ -No Return precautions reviewed in depth, the patient is instructed to return to the emergency department with any new, worsening, or concerning symptoms. Patient verbalized understanding. This case was discussed in detail with the attending ED physician, Dr. Izquierdo. Presentation, findings, and treatment plan discussed in detail as well. - Lab Data Lab Results 06/17/23 06/17/23 Range/Units 09:58 11:11 Influenza Type A (PCR) Not Detected (Not Detectd) Influenza Type B (PCR) Not Detected (Not Detectd) RSV (PCR) Not Detected (Not Detectd) SARS-CoV-2 (PCR) Not Detected (Not Detectd) Group A Strep (PCR) NOT DETECTED (Not Detectd) Disposition Clinical Impression: Asthmatic bronchitis Disposition: HOME SELF-CARE Instructions (If sedation given, give patient instructions): Acute Bronchitis (ED) Additional Instructions: Return to the emergency department with any new, worsening, or concerning symptoms. Take the prednisone daily for 5 days. Use your albuterol inhaler every 4-6 hours as needed. Follow up with your primary care provider in 1-2 days. Prescriptions: predniSONE 50 mg PO DAILY 5 Days #5 tab Is patient prescribed a controlled substance at d/c from ED?: No Referrals: Vishal Cedeño MD [REFERRING] - 1-2 days
[2023-06-17 11:53] VITALS: BP 122/70; PULSE 55; RESP 18; TEMP 97.5
== END 2023-06-17 11:53 | disposition home or self-care (01) ==
LOC: EC 09:36
DX: J45.909 Unspecified asthma, uncomplicated (principal); F17.290 Nicotine dependence, other tobacco product, uncomplicated; F12.90 Cannabis use, unspecified, uncomplicated; Z20.822 Contact with and (suspected) exposure to COVID-19; Z91.018 Allergy to other foods
CPT/HCPCS: 87636; 87651; 94640; 99283

== ENCOUNTER 2023-08-17 08:59 | Emergency (ER) | payer OTHER ==
--- NOTE | 2023-08-17 10:19 | ED ---
URI HPI - General Source: patient Mode of arrival: ambulatory Limitations: no limitations <Jeanette Do - Last Filed: 08/17/23 10:12> - General Source: RN notes reviewed <Juli De La Cruz - Last Filed: 08/19/23 07:11> - General Chief Complaint: Upper Respiratory Infection Stated Complaint: sob Time Seen by Provider: 08/17/23 10:12 - History of Present Illness Initial Comments: Patient is a 27-year-old male presented ER with a chief complaint of sore throat and cough. Patient has a past medical history significant for asthma. States he symptoms have been going on for the past 24 hours. No recent fevers. (Jeanette Do) Quick note reviewed: This is a 27-year-old male with past medical history significant for asthma resents to the emergency department the chief complaint of throat and cough. Patient reports that he has felt like his throat has been sore times one day. He is also complaining that he feels like his chest is tight. He denies any fevers, chills, chest pain, palpitations, nausea, vomiting. Unsure of recent sick contacts. (Juli De La Cruz) - Related Data Home Medications Medication Instructions Recorded Confirmed Loratadine [Claritin] 10 mg PO DAILY 09/19/21 08/17/23 Previous Rx's Medication Instructions Recorded Albuterol Inhaler [Ventolin Hfa 1 puff INHALATION RT-QID #8 gm 02/02/22 Inhaler] Albuterol Inhaler [Ventolin Hfa 1 puff INHALATION QID #8 gm 08/17/23 Inhaler] Azithromycin [Zithromax Z Pack] 0 tab PO DIRECTED #6 tab 08/17/23 predniSONE 50 mg PO DAILY #5 tab 08/17/23 Allergies Allergy/AdvReac Type Severity Reaction Status Date / Time blueberry [Blueberry] Allergy Rash/Hives Verified 08/17/23 11:31 green beans AdvReac Vomiting Uncoded 08/17/23 09:15 Review of Systems ROS Other: All systems not noted in ROS Statement are negative. <Jeanette Do - Last Filed: 08/17/23 10:12> ROS Other: All systems not noted in ROS Statement are negative. <Juli De La Cruz - Last Filed: 08/19/23 07:11> ROS Statement: Those systems with pertinent positive or pertinent negative responses have been documented in the HPI. Past Medical History Past Medical History: Asthma Additional Past Medical History / Comment(s): Croup History of Any Multi-Drug Resistant Organisms: None Reported Past Surgical History: No Surgical Hx Reported Past Psychological History: No Psychological Hx Reported Smoking Status: Former smoker, Vaper Past Alcohol Use History: None Reported Past Drug Use History: Marijuana <Jeanette Do - Last Filed: 08/17/23 10:12> General Exam Limitations: no limitations <Jeanette Do - Last Filed: 08/17/23 10:12> <Juli De La Cruz - Last Filed: 08/19/23 07:11> - General Exam Comments Initial Comments: Visual Physical Exam Vital signs reviewed General: Well-appearing, nontoxic, no acute distress. Head: Normocephalic, atraumatic Eyes: PERRLA, EOMI ENT: Airway patent Chest: Nonlabored breathing, mild wheezing Skin: No visual rash, normal skin tone Neuro: Alert and oriented 3 Musculoskeletal: No gross abnormalities (Jeanette Do) General: Alert, in no acute distress Head: atraumatic normocephalic. Eyes PERRL, EOMI intact, mucous membranes moist Respiratory: Expiratory wheeze Cardiovascular: Heart rate regular rate and rhythm Abdominal: Soft without guarding or rebound Extremities: Normal inspection with full range of motion and normal capillary refill Neuroogic: alert and oriented 3, CN II-XII intact, able to ambulate with steady gait Skin: warm dry and intact with normal color (Juli De La Cruz) Course <Juli De La Cruz - Last Filed: 08/19/23 07:11> Vital Signs 08/17/23 08/17/23 08/17/23 09:12 12:16 12:24 Temperature 98.5 F Pulse Rate 58 L 60 60 Respiratory 20 Rate Blood Pressure 128/73 O2 Sat by Pulse 98 Oximetry 08/17/23 12:37 Temperature 97.8 F Pulse Rate 63 Respiratory 18 Rate Blood Pressure 122/78 O2 Sat by Pulse 98 Oximetry - Reevaluation(s) Reevaluation #1: 08/17/23 12:32 Pt reevaluated. Lung sounds clear to auscultation bilaterally after breathing treatment (Juli De La Cruz) Medical Decision Making <Jeanette Do - Last Filed: 08/17/23 10:12> <Juli De La Cruz - Last Filed: 08/19/23 07:11> - Medical Decision Making I performed the quick note portion of the exam. Electronically signed by Jeanette Do PA-C (Jeanette Do) Was pt. sent in by a medical professional or institution (JAMEY Stein, MANAGER ANALYSIS, urgent care, hospital, or alf...) When possible be specific @ -[No] Did you speak to anyone other than the patient for history (EMS, parent, family, police, friend...)? What history was obtained from this source @ -Mother Did you review nursing and triage notes (agree or disagree)? Why? @ -[I reviewed and agree with nursing and triage notes] Were old charts reviewed (outside hosp., previous admission, EMS record, old EKG, old radiological studies, urgent care reports/EKG's, alf records)? Report findings @ -[No old charts were reviewed] Differential Diagnosis (chest pain, altered mental status, abdominal pain women, abdominal pain men, vaginal bleeding, weakness, fever, dyspnea, syncope, headache, dizziness, GI bleed, back pain, seizure, CVA, palpatations, mental health, musculoskeletal)? @ -[not applicable] EKG interpreted by me (3pts min.). @ -[As above] X-rays interpreted by me (1pt min.). @ Chest x-ray does not reveal any intrapleural process or focal consolidation CT interpreted by me (1pt min.). @ -[None done] U/S interpreted by me (1pt. min.). @ -[None done] What testing was considered but not performed or refused? (CT, X-rays, U/S, labs)? Why? @ -[None] What meds were considered but not given or refused? Why? @ -[None] Did you discuss the management of the patient with other professionals (professionals i.e. JAMEY Stein, MANAGER ANALYSIS, lab, RT, psych nurse, outreach and education social worker, special weapons and tactics officer, teacher, international first officer, therapeutic case manager)? Give summary @ -[No] Was smoking cessation discussed for >3mins.? @ -[No] Was critical care preformed (if so, how long)? @ -[No] Were there social determinants of health that impacted care today? How? (Homelessness, low income, unemployed, alcoholism, drug addiction, transportation, low edu. Level, literacy, decrease access to med. care, half-way, re hab)? @ -[No] Was there de-escalation of care discussed even if they declined (Discuss DNR or withdrawal of care, Hospice)? DNR status @ -[No] What co-morbidities impacted this encounter? (DM, HTN, Smoking, COPD, CAD, Cancer, CVA, ARF, Chemo, Hep., AIDS, mental health diagnosis, sleep apnea, morbid obesity)? @ -[None] Was patient admitted / discharged? Hospital course, mention meds given and route, prescriptions, significant lab abnormalities, going to OR and other pertinent info. @ -Discharged. Discharged. This is a pleasant 27-year-old male who presents the emergency department with cough. Patient had a thorough history and physical exam performed. Vital signs stable. Heart rate regular rate and rhythm, lungs with mild expiratory wheeze abdomen soft and nontender. Patient had viral testing which were negative. Chest x-ray negative for any focal consolidation. Patient was given albuterol treatment with dramatic improvement while in the ED. I discussed the results in detail with the patient verbalized understanding and all questions were addressed. Patient provided a morphine, prednisone, Tessalon Perles prescription. Return precautions discussed at length. Patient discharged in stable condition. Case is discussed with Dr.M bartholomew, [facility] who agrees with plan of care Undiagnosed new problem with uncertain prognosis? @ -[No] Drug Therapy requiring intensive monitoring for toxicity (Heparin, Nitro, Insulin, Cardizem)? @ -[No] Were any procedures done? @ -[No] Diagnosis/symptom? @ -COugh Acute, or Chronic, or Acute on Chronic? @ -Cough Uncomplicated (without systemic symptoms) or Complicated (systemic symptoms)? @ -Uncomplicated Side effects of treatment? @ -[No] Exacerbation, Progression, or Severe Exacerbation? @ -[No] Poses a threat to life or bodily function? How? (Chest pain, [place], [place], pneumonia, PE, COPD, DKA, ARF, appy, cholecystitis, CVA, Diverticulitis, Homicidal, Suicidal, threat to staff... and all critical care pts) @ -Low likelihood (Juli De La Cruz) - Lab Data Lab Results 08/17/23 08/17/23 Range/Units 09:17 09:18 Influenza Type A (PCR) Not Detected (Not Detectd) Influenza Type B (PCR) Not Detected (Not Detectd) RSV (PCR) Not Detected (Not Detectd) SARS-CoV-2 (PCR) Not Detected (Not Detectd) Group A Strep (PCR) NOT DETECTED (Not Detectd) Disposition <Jeanette Do - Last Filed: 08/17/23 10:12> Is patient prescribed a controlled substance at d/c from ED?: No Time of Disposition: 11:15 <Juli De La Cruz - Last Filed: 08/19/23 07:11> Clinical Impression: Cough Disposition: HOME SELF-CARE Instructions (If sedation given, give patient instructions): Upper Respiratory Infection (ED) Additional Instructions: Please take antibiotics as prescribed Please return if symptoms worsen or persist Prescriptions: predniSONE 50 mg PO DAILY #5 tab Albuterol Inhaler [Ventolin Hfa Inhaler] 1 puff INHALATION QID #8 gm Azithromycin [Zithromax Z Pack] 0 tab PO DIRECTED #6 tab Referrals: None,Stated [Primary Care Provider] - 1-2 days
--- NOTE | 2023-08-17 10:53 | XR ---
EXAMINATION TYPE: XR chest 2V DATE OF EXAM: 08/17/2023 10:31 AM CLINICAL INDICATION:Male, 27 years old with history of cough; [facility] COMPARISON: Chest radiographs from 02/02/2022 TECHNIQUE: XR chest 2V Frontal and lateral views of the chest. FINDINGS: Lungs/Pleura: There is no evidence of pleural effusion, focal consolidation, or pneumothorax. Pulmonary vascularity: Unremarkable. Heart/mediastinum: Cardiomediastinal silhouette is unremarkable. Musculoskeletal: No acute osseous pathology. Other findings: None IMPRESSION: No acute cardiopulmonary disease/process.
[2023-08-17] MEDS ORDERED: ALBUTEROL NEBULIZED 2.5 MG/3 ML INHALATION STA (11:13)
[2023-08-17] MEDS ORDERED: BENZONATATE 100 MG CAP PO STA (11:13)
[2023-08-17] MEDS ORDERED: methylPREDNISolone SOD SUCCI 125 MG/2 ML VIAL IM ONE (11:13)
[2023-08-17 12:42] VITALS: BP 122/78; PULSE 63; RESP 18; TEMP 97.8
== END 2023-08-17 12:40 | disposition home or self-care (01) ==
LOC: EC 08:59
DX: R05.9 Cough, unspecified (principal); J45.909 Unspecified asthma, uncomplicated; F17.290 Nicotine dependence, other tobacco product, uncomplicated; F12.90 Cannabis use, unspecified, uncomplicated; Z91.018 Allergy to other foods; Z20.822 Contact with and (suspected) exposure to COVID-19
CPT/HCPCS: 94640; 87651; 87636; 71046; 99285; 96372; J2930

== ENCOUNTER 2023-10-03 13:27 | Emergency (ER) | payer OTHER ==
[2023-10-03 13:42] VITALS: PULSE 80; RESP 16; TEMP 97.7
--- NOTE | 2023-10-03 13:50 | ED ---
ENT HPI - General Chief complaint: ENT Stated complaint: ENT Time Seen by Provider: 10/03/23 13:48 Source: patient, RN notes reviewed Mode of arrival: ambulatory Limitations: no limitations - History of Present Illness Initial comments: This is a 27 year old male who presents to the emergency department for nasal congestion and drainage. Reports a hx of asthma, but denies any fevers/chills, coughing, chest pain, or shortness of breath. Also denies any sick contacts. States that he would like to be tested for COVID and flu. Not taking anything to manage his symptoms at home. - Related Data Home Medications Medication Instructions Recorded Confirmed Loratadine [Claritin] 10 mg PO DAILY 09/19/21 08/17/23 Previous Rx's Medication Instructions Recorded Albuterol Inhaler [Ventolin Hfa 1 puff INHALATION RT-QID #8 gm 02/02/22 Inhaler] Albuterol Inhaler [Ventolin Hfa 1 puff INHALATION QID #8 gm 08/17/23 Inhaler] Azithromycin [Zithromax Z Pack] 0 tab PO DIRECTED #6 tab 08/17/23 predniSONE 50 mg PO DAILY #5 tab 08/17/23 Ipratropium [place] 0.06%Nasal 2 spray EA NOSTRIL BID #15 ml 10/03/23 [Atrovent Nasal 0.06%] Allergies Allergy/AdvReac Type Severity Reaction Status Date / Time blueberry [Blueberry] Allergy Rash/Hives Verified 10/03/23 13:43 green beans AdvReac Vomiting Uncoded 08/17/23 09:15 Review of Systems ROS Statement: Those systems with pertinent positive or pertinent negative responses have been documented in the HPI. ROS Other: All systems not noted in ROS Statement are negative. Past Medical History Past Medical History: Asthma Additional Past Medical History / Comment(s): Croup History of Any Multi-Drug Resistant Organisms: None Reported Past Surgical History: No Surgical Hx Reported Past Psychological History: No Psychological Hx Reported Smoking Status: Former smoker, Vaper Past Alcohol Use History: None Reported Past Drug Use History: Marijuana General Exam - General Exam Comments Initial Comments: Visual Physical Exam Vital signs reviewed General: Well-appearing, nontoxic, no acute distress. Head: Normocephalic, atraumatic Eyes: PERRLA, EOMI ENT: Airway patent Chest: Nonlabored breathing Skin: No visual rash, normal skin tone Neuro: Alert and oriented 3 Musculoskeletal: No gross abnormalities Limitations: no limitations General appearance: alert, in no apparent distress Head exam: Present: atraumatic, normocephalic, normal inspection Respiratory exam: Present: normal lung sounds bilaterally. Absent: respiratory distress, wheezes, rales, rhonchi, stridor Cardiovascular Exam: Present: regular rate, normal rhythm, normal heart sounds. Absent: systolic murmur, diastolic murmur, rubs, gallop, clicks Neurological exam: Present: alert, oriented X3, CN II-XII intact Psychiatric exam: Present: normal affect, normal mood Skin exam: Present: warm, dry, intact, normal color. Absent: rash Course Vital Signs 10/03/23 13:38 Temperature 97.7 F Pulse Rate 80 Respiratory 16 Rate O2 Sat by Pulse 96 Oximetry Medical Decision Making - Medical Decision Making This is a 27 year old male who presents to the emergency department for nasal drainage. Was pt. sent in by a medical professional or institution? @ -No Did you speak to anyone other than the patient for history? @ -No Did you review nursing and triage notes? @ -Yes, and I agree, it is accurate with regards to the patient's symptoms. Were old charts reviewed? @ -No Differential Diagnosis? @ -Differential Nasal Drainage: COVID, influeza, sinusitis, allergic rhinitis, this is not meant to be an all- inclusive list. EKG interpreted by me (3pts min.)? @ -Not obtained X-rays interpreted by me (1pt min.)? @ -Not obtained CT interpreted by me (1pt min.)? @ -Not obtained U/S interpreted by me (1pt. min.)? @ -Not obtained What testing was considered but not performed? (CT, X-rays, U/S, labs)? Why? @ -None What meds were considered but not given? Why? @ -None Did you discuss the management of the patient with other professionals? @ -No Did you reconcile home meds? @ -No Was smoking cessation discussed for >3mins.? @ -No Was critical care preformed (if so, how long)? @ -No Were there social determinants of health that impacted care today? How? (Homelessness, low income, unemployed, alcoholism, drug addiction, transportation, low edu. Level, literacy, decrease access to med. care, [facility], rehab)? @ -No Was there de-escalation of care discussed even if they declined? (Discuss DNR or withdrawal of care, Hospice)? @ -No What co-morbidities impacted this encounter? (DM, HTN, Smoking, COPD, CAD, Cancer, CVA, Hep., AIDS, mental health diagnosis, sleep apnea, morbid obesity)? @ -Asthma Was patient admitted / discharged? @ -Discharged. Patient positive for COVID-19. Other than rhinorrhea, he had no other symptoms. We discussed antiviral treatment given his asthma, however patient declined given that his symptoms were not very bothersome. Rx for ipratropium bromide nasal spray provided with dosing instructions reviewed for management of the nasal drainage. Quarantine guidelines reviewed, advised over the counter management as needed for symptoms, drinking plenty of fluids, and getting plenty of rest. Undiagnosed new problem with uncertain prognosis? @ -None Drug Therapy requiring intensive monitoring for toxicity (Heparin, Nitro, Insulin, Cardizem)? @ -None Were any procedures done? @ -None Diagnosis/symptom? @ -COVID-19, rhinorrhea Acute, or Chronic, or Acute on Chronic? @ -Acute Uncomplicated (without systemic symptoms) or Complicated (systemic symptoms)? @ -Uncomplicated Side effects of treatment? @ -None Exacerbation, Progression, or Severe Exacerbation] @ -Not applicable Poses a threat to life or bodily function? @ -No Return precautions reviewed in depth, the patient is instructed to return to the emergency department with any new, worsening, or concerning symptoms. Patient verbalized understanding. This case was discussed in detail with the attending ED physician, Dr. Nagy. Presentation, findings, and treatment plan discussed in detail as well. - Lab Data Lab Results 10/03/23 Range/Units 13:47 Influenza Type A (PCR) Not Detected (Not Detectd) Influenza Type B (PCR) Not Detected (Not Detectd) RSV (PCR) Not Detected (Not Detectd) SARS-CoV-2 (PCR) Detected A (Not Detectd) Disposition Clinical Impression: COVID-19 Disposition: HOME SELF-CARE Instructions (If sedation given, give patient instructions): Coronavirus Disease 2019 (COVID-19), How to Recover from COVID-19 at Home (ED) Additional Instructions: Return to the emergency department with any new, worsening, or concerning symptoms. You can use the nasal spray prescribed a few times daily to help with nasal drainage. You can also use [id number] decongestants as needed. Follow up with your primary care provider in 1-2 days. Prescriptions: Ipratropium [place] 0.06%Nasal [Atrovent Nasal 0.06%] 2 spray EA NOSTRIL BID #15 ml Is patient prescribed a controlled substance at d/c from ED?: No Referrals: None,Stated [Primary Care Provider] - 1-2 days
== END 2023-10-03 15:05 | disposition home or self-care (01) ==
LOC: EC 13:27
DX: U07.1 COVID-19 (principal); J45.909 Unspecified asthma, uncomplicated; F12.90 Cannabis use, unspecified, uncomplicated; F17.290 Nicotine dependence, other tobacco product, uncomplicated; Z91.018 Allergy to other foods
CPT/HCPCS: 87636; 99283

== ENCOUNTER 2023-11-16 08:31 | Emergency (ER) | payer OTHER ==
--- NOTE | 2023-11-16 09:45 | ED ---
ENT HPI - General Chief complaint: ENT Stated complaint: congestion Time Seen by Provider: 11/16/23 08:37 Source: patient, RN notes reviewed Mode of arrival: ambulatory Limitations: no limitations - History of Present Illness Initial comments: This is a 27-year-old male who presents to the emergency department for congestion. Reports significant nasal drainage and congestion starting this morning. This is primarily yellow in color. Denies any coughing, chest pain, shortness of breath, fevers, or chills. Not currently taking anything to treat his symptoms. Denies any sick contacts. - Related Data Home Medications Medication Instructions Recorded Confirmed Loratadine [Claritin] 10 mg PO DAILY 09/19/21 08/17/23 Previous Rx's Medication Instructions Recorded Albuterol Inhaler [Ventolin Hfa 1 puff INHALATION RT-QID #8 gm 02/02/22 Inhaler] Albuterol Inhaler [Ventolin Hfa 1 puff INHALATION QID #8 gm 08/17/23 Inhaler] Azithromycin [Zithromax Z Pack] 0 tab PO DIRECTED #6 tab 08/17/23 predniSONE 50 mg PO DAILY #5 tab 08/17/23 Ipratropium [place] 0.06%Nasal 2 spray EA NOSTRIL BID #15 ml 10/03/23 [Atrovent Nasal 0.06%] Allergies Allergy/AdvReac Type Severity Reaction Status Date / Time blueberry [Blueberry] Allergy Rash/Hives Verified 11/16/23 08:35 green beans AdvReac Vomiting Uncoded 08/17/23 09:15 Review of Systems ROS Statement: Those systems with pertinent positive or pertinent negative responses have been documented in the HPI. ROS Other: All systems not noted in ROS Statement are negative. Past Medical History Past Medical History: Asthma Additional Past Medical History / Comment(s): Croup History of Any Multi-Drug Resistant Organisms: None Reported Past Surgical History: No Surgical Hx Reported Past Psychological History: No Psychological Hx Reported Smoking Status: Former smoker, Vaper Past Alcohol Use History: None Reported Past Drug Use History: Marijuana General Exam Limitations: no limitations General appearance: alert, in no apparent distress Head exam: Present: atraumatic, normocephalic, normal inspection Respiratory exam: Present: normal lung sounds bilaterally. Absent: respiratory distress, wheezes, rales, rhonchi, stridor Cardiovascular Exam: Present: regular rate, normal rhythm, normal heart sounds. Absent: systolic murmur, diastolic murmur, rubs, gallop, clicks Neurological exam: Present: alert, oriented X3, CN II-XII intact Psychiatric exam: Present: normal affect, normal mood Skin exam: Present: warm, dry, intact, normal color. Absent: rash Course Vital Signs 11/16/23 11/16/23 08:33 10:23 Temperature 97.6 F 98.5 F Pulse Rate 148 H 65 Respiratory 16 18 Rate Blood Pressure 148/86 117/76 O2 Sat by Pulse 98 98 Oximetry Medical Decision Making - Medical Decision Making This is a 27 year old male who presents to the emergency department for c ongestion. Was pt. sent in by a medical professional or institution? @ -No Did you speak to anyone other than the patient for history? @ -No Did you review nursing and triage notes? @ -Yes, and I agree, it is accurate with regards to the patient's symptoms. Were old charts reviewed? @ -No Differential Diagnosis? @ -Differential Congestion: COVID, influenza, sinusitis, allergic rhinitis, this is not meant to be an all- inclusive list. EKG interpreted by me (3pts min.)? @ -Not obtained X-rays interpreted by me (1pt min.)? @ -Not obtained CT interpreted by me (1pt min.)? @ -Not obtained U/S interpreted by me (1pt. min.)? @ -Not obtained What testing was considered but not performed? (CT, X-rays, U/S, labs)? Why? @ -None What meds were considered but not given? Why? @ -None Did you discuss the management of the patient with other professionals? @ -No Did you reconcile home meds? @ -No Was smoking cessation discussed for >3mins.? @ -No Was critical care preformed (if so, how long)? @ -No Were there social determinants of health that impacted care today? How? (Homelessness, low income, unemployed, alcoholism, drug addiction, transportation, low edu. Level, literacy, decrease access to med. care, correction, rehab)? @ -No Was there de-escalation of care discussed even if they declined? (Discuss DNR or withdrawal of care, Hospice)? @ -No What co-morbidities impacted this encounter? (DM, HTN, Smoking, COPD, CAD, Cancer, CVA, Hep., AIDS, mental health diagnosis, sleep apnea, morbid obesity)? @ -Asthma Was patient admitted / discharged? @ -Discharged. COVID, influenza, and RSV testing were negative. Discussed that this is likely a viral sinusitis and antibiotic management is not indicated at this point. Advised [id number] decongestants as needed and follow up with his primary care provider. Undiagnosed new problem with uncertain prognosis? @ -None Drug Therapy requiring intensive monitoring for toxicity (Heparin, Nitro, Insulin, Cardizem)? @ -None Were any procedures done? @ -None Diagnosis/symptom? @ -Viral sinusitis Acute, or Chronic, or Acute on Chronic? @ -Acute Uncomplicated (without systemic symptoms) or Complicated (systemic symptoms)? @ -Uncomplicated Side effects of treatment? @ -None Exacerbation, Progression, or Severe Exacerbation] @ -Not applicable Poses a threat to life or bodily function? @ -No Return precautions reviewed in depth, the patient is instructed to return to the emergency department with any new, worsening, or concerning symptoms. Patient verbalized understanding. This case was discussed in detail with the attending ED physician, Dr. Tran. Presentation, findings, and treatment plan discussed in detail as well. - Lab Data Lab Results 11/16/23 Range/Units 08:37 Influenza Type A (PCR) Not Detected (Not Detectd) Influenza Type B (PCR) Not Detected (Not Detectd) RSV (PCR) Not Detected (Not Detectd) SARS-CoV-2 (PCR) Not Detected (Not Detectd) Disposition Clinical Impression: Viral sinusitis Disposition: HOME SELF-CARE Instructions (If sedation given, give patient instructions): Sinusitis (ED) Additional Instructions: Return to the emergency department with any new, worsening, or concerning symptoms. You can use [id number] decongestants as needed for management of your symptoms. Follow up with your primary care provider in 1-2 days. Is patient prescribed a controlled substance at d/c from ED?: No Referrals: [facility] [Primary Care Provider] - 1-2 days Time of Disposition: 10:11
[2023-11-16 10:25] VITALS: BP 117/76; PULSE 65; RESP 18; TEMP 98.5
== END 2023-11-16 10:24 | disposition home or self-care (01) ==
LOC: EC 08:31
DX: J01.90 Acute sinusitis, unspecified (principal); J45.909 Unspecified asthma, uncomplicated; F12.90 Cannabis use, unspecified, uncomplicated; F17.290 Nicotine dependence, other tobacco product, uncomplicated; Z79.899 Other long term (current) drug therapy; Z91.018 Allergy to other foods; Z20.822 Contact with and (suspected) exposure to COVID-19
CPT/HCPCS: 87636; 99283

== ENCOUNTER 2024-07-17 08:51 | Emergency (ER) | payer OTHER ==
[2024-07-17 08:58] VITALS: RESP 16; TEMP 98.2
--- NOTE | 2024-07-17 09:11 | ED ---
URI HPI - General Chief Complaint: Upper Respiratory Infection Stated Complaint: congestion/throat clogging feeling Time Seen by Provider: 07/17/24 08:59 Source: patient, RN notes reviewed Mode of arrival: ambulatory Limitations: no limitations - History of Present Illness Initial Comments: This is a 28-year-old male who presents to the emergency department for a sore throat. States that it started yesterday. States that his throat feels like it is clogged and has a sensation of almost closing. Also reports chest congestion. States that this feels like he is developing croup or bronchitis again, which he most recently had about a year ago. States that he responds well to steroids. Denies any fevers/chills or sick contacts. - Related Data Home Medications Medication Instructions Recorded Confirmed Loratadine [Claritin] 10 mg PO DAILY 09/19/21 08/17/23 Previous Rx's Medication Instructions Recorded Albuterol Inhaler [Ventolin Hfa 1 puff INHALATION RT-QID #8 gm 02/02/22 Inhaler] Albuterol Inhaler [Ventolin Hfa 1 puff INHALATION QID #8 gm 08/17/23 Inhaler] Azithromycin [Zithromax Z Pack] 0 tab PO DIRECTED #6 tab 08/17/23 predniSONE 50 mg PO DAILY #5 tab 08/17/23 Ipratropium [place] 0.06%Nasal 2 spray EA NOSTRIL BID #15 ml 10/03/23 [Atrovent Nasal 0.06%] Allergies Allergy/AdvReac Type Severity Reaction Status Date / Time blueberry [Blueberry] Allergy Rash/Hives Verified 07/17/24 08:58 green beans AdvReac Vomiting Uncoded 08/17/23 09:15 Review of Systems ROS Statement: Those systems with pertinent positive or pertinent negative responses have been documented in the HPI. ROS Other: All systems not noted in ROS Statement are negative. Past Medical History Past Medical History: Asthma Additional Past Medical History / Comment(s): Croup History of Any Multi-Drug Resistant Organisms: None Reported Past Surgical History: No Surgical Hx Reported Past Psychological History: No Psychological Hx Reported Smoking Status: Former smoker, Vaper Past Alcohol Use History: None Reported Past Drug Use History: Marijuana General Exam Limitations: no limitations General appearance: alert, in no apparent distress Head exam: Present: atraumatic, normocephalic, normal inspection ENT exam: Present: normal oropharynx Respiratory exam: Present: normal lung sounds bilaterally. Absent: respiratory distress, wheezes, rales, rhonchi, stridor Cardiovascular Exam: Present: regular rate, normal rhythm, normal heart sounds. Absent: systolic murmur, diastolic murmur, rubs, gallop, clicks Neurological exam: Present: alert, oriented X3, CN II-XII intact Psychiatric exam: Present: normal affect, normal mood Skin exam: Present: warm, dry, intact, normal color. Absent: rash Course Vital Signs 07/17/24 07/17/24 08:56 10:52 Temperature 98.2 F 98.2 F Pulse Rate 75 71 Respiratory 16 16 Rate Blood Pressure 133/77 124/86 O2 Sat by Pulse 97 98 Oximetry Medical Decision Making - Medical Decision Making This is a 28 year old male who presents to the emergency department for a sore throat. Was pt. sent in by a medical professional or institution? @ -No Did you speak to anyone other than the patient for history? @ -No Did you review nursing and triage notes? @ -Yes, and I agree, it is accurate with regards to the patient's symptoms. Were old charts reviewed? @ -No Differential Diagnosis? @ -Differential Sore Throat: Strep pharyngitis, herpes zoster, COVID, influenza, GERD, allergic rhinitis, mononucleosis, this is not meant to be an all-inclusive list. EKG interpreted by me (3pts min.)? @ -Not obtained X-rays interpreted by me (1pt min.)? @ -Chest x-ray obtained, my interpretation identifies no localized consolidations or infiltrates. X-ray of the soft tissue neck obtained. My interpretation identifies no subglottic narrowing. CT interpreted by me (1pt min.)? @ -Not obtained U/S interpreted by me (1pt. min.)? @ -Not obtained What testing was considered but not performed? (CT, X-rays, U/S, labs)? Why? @ -None What meds were considered but not given? Why? @ -None Did you discuss the management of the patient with other professionals? @ -No Did you reconcile home meds? @ -No Was smoking cessation discussed for >3mins.? @ -No Was critical care preformed (if so, how long)? @ -No Were there social determinants of health that impacted care today? How? (Homelessness, low income, unemployed, alcoholism, drug addiction, transportation, low edu. Level, literacy, decrease access to med. care, [facility], rehab)? @ -No Was there de-escalation of care discussed even if they declined? (Discuss DNR or withdrawal of care, Hospice)? @ -No What co-morbidities impacted this encounter? (DM, HTN, Smoking, COPD, CAD, Cancer, CVA, Hep., AIDS, mental health diagnosis, sleep apnea, morbid obesity)? @ -Asthma Was patient admitted / discharged? @ -Discharged. COVID, influenza, and RSV testing negative. Rapid strep test negative. X-ray of the chest and soft tissue neck obtained revealing no acute process. IM Decadron administered for the pharyngeal symptoms. Advised that symptoms are otherwise likely viral in nature. Patient discharged home in stable condition. Case discussed with ED attending Dr. Tran. Return precautions reviewed in depth, the patient is instructed to return to the emergency department with any new, worsening, or concerning symptoms. Patient verbalized understanding. Undiagnosed new problem with uncertain prognosis? @ -None Drug Therapy requiring intensive monitoring for toxicity (Heparin, Nitro, Insulin, Cardizem)? @ -None Were any procedures done? @ -None Diagnosis/symptom? @ -URI Acute, or Chronic, or Acute on Chronic? @ -Acute Uncomplicated (without systemic symptoms) or Complicated (systemic symptoms)? @ -Uncomplicated Side effects of treatment? @ -None Exacerbation, Progression, or Severe Exacerbation] @ -Not applicable Poses a threat to life or bodily function? @ -No - Lab Data Lab Results 07/17/24 07/17/24 Range/Units 09:22 09:22 Influenza Type A (PCR) Not Detected (Not Detectd) Influenza Type B (PCR) Not Detected (Not Detectd) RSV (PCR) Not Detected (Not Detectd) SARS-CoV-2 (PCR) Not Detected (Not Detectd) Group A Strep (PCR) NOT DETECTED (Not Detectd) - Radiology Data Radiology results: report reviewed, image reviewed Disposition Clinical Impression: Upper respiratory tract infection Disposition: HOME SELF-CARE Instructions (If sedation given, give patient instructions): Upper Respiratory Infection (ED) Additional Instructions: Return to the emergency department with any new, worsening, or concerning symptoms. Follow up with your primary care provider in 1-2 days. Is patient prescribed a controlled substance at d/c from ED?: No Referrals: [facility] [Primary Care Provider] - 1-2 days Time of Disposition: 10:42
[2024-07-17] MEDS: DEXAMETHASONE SOD PHOSPHATE 10 MG/ML 1 ML VIAL IM STA (10:09)
--- NOTE | 2024-07-17 10:13 | XR ---
EXAMINATION TYPE: XR chest 2V DATE OF EXAM: 07/17/2024 10:04 AM CLINICAL INDICATION: Male, 28 years old with history of Cough, dysphagia; [facility] COMPARISON: Chest radiographs from 08/17/2023 TECHNIQUE: XR chest 2V Frontal view of the chest. FINDINGS: Lungs/Pleura: There is no evidence of pleural effusion, focal consolidation, or pneumothorax. Pulmonary vascularity: Unremarkable. Heart/mediastinum: Cardiomediastinal silhouette is unremarkable. Musculoskeletal: No acute osseous pathology. IMPRESSION: No acute cardiopulmonary disease/process. [facility], , 07/17/2024 10:11 AM
--- NOTE | 2024-07-17 10:14 | XR ---
EXAMINATION TYPE: XR soft tissue neck DATE OF EXAM: 07/17/2024 10:04 AM CLINICAL INDICATION: Male, 28 years old with history of Cough, dysphagia; [facility] COMPARISON: None TECHNIQUE: The soft tissues of the neck were imaged in frontal and lateral views. FINDINGS: The prevertebral soft tissues are unremarkable. There is no evidence of mass effect or trac heal deviation. No acute osseous abnormality demonstrated. No evidence of subglottic narrowing. IMPRESSION: No significant abnormality identified within the soft tissues of the neck. [facility], , 07/17/2024 10:12 AM
[2024-07-17 10:54] VITALS: BP 124/86; PULSE 71
== END 2024-07-17 11:11 | disposition home or self-care (01) ==
LOC: EC 08:51
CPT/HCPCS: 70360; 71046; 87636; 87651; 96372; 99284